=== PATIENT | male | born 1990 | race African-American/Black ===

== ENCOUNTER 2019-07-05 06:40 | Emergency (ER) | payer OTHER ==
[~2019-07-05] VITALS: Ht 182.9 cm; Wt 97.7 kg
[2019-07-05] MEDS ORDERED: ONDANSETRON 4MG/2ML VIAL (J2405) IV ONE (07:00)
[2019-07-05] MEDS ORDERED: KETOROLAC 30 MG/ML VIAL (J1885) IV ONE (07:00)
[2019-07-05 07:39] LABS: BASO # 0.1 10^3/uL (0.0-0.2); EOS % 0.6 % (0.0-3.0); HEMATOCRIT 45.4 % (42.0-52.0); HEMOGLOBIN 14.9 g/dl (13.5-17.5); LYMPH # 1.9 10^3/uL (1.5-5.0); LYMPH % 39.1 % (24.0-44.0); MEAN CORPUSCULAR HEMOGLOBIN 30.5 pg (27.0-33.0); MEAN CORPUSCULAR HGB CONC 32.8 g/dl (32.0-36.5); MEAN CORPUSCULAR VOLUME 92.8 fl (80.0-96.0); MONO # 0.4 10^3/uL (0.0-0.8); MONO % 8.4 % (0.0-5.0); NEUTROPHILS # 2.5 10^3/uL (1.5-8.5); NEUTROPHILS % 50.7 % (36.0-66.0); PLATELET COUNT, AUTOMATED 249 10^3/uL (150-450); RED BLOOD COUNT 4.89 10^6/uL (4.30-6.10); WHITE BLOOD COUNT 4.9 10^3/uL (4.0-10.0)
[2019-07-05 07:53] LABS: BLOOD UREA NITROGEN 10 MG/DL (7-18); CALCIUM LEVEL 8.9 MG/DL (8.5-10.1); CARBON DIOXIDE LEVEL 28 MEQ/L (21-32); CHLORIDE LEVEL 107 MEQ/L (98-107); CREATININE FOR GFR 1.19 MG/DL (0.70-1.30); GLOMERULAR FILTRATION RATE > 60.0 (>60); GLUCOSE, FASTING 87 MG/DL (70-100); POTASSIUM SERUM 4.4 MEQ/L (3.5-5.1); SODIUM LEVEL 141 MEQ/L (136-145)
[2019-07-05 07:57] LABS: ALBUMIN 3.5 GM/DL (3.2-5.2); BILIRUBIN,DIRECT 0.1 MG/DL (0.0-0.2); BILIRUBIN,TOTAL 0.5 MG/DL (0.2-1.0); TOTAL PROTEIN 7.2 GM/DL (6.4-8.2)
[2019-07-05] MEDS ORDERED: ONDA4TAB6 PO (08:19)
[2019-07-05 08:48] VITALS: BP 147/88
--- NOTE | 2019-07-05 15:03 | ECGEPIP ---
[facility] - ED Test Date: 2019-07-05 Pat Name: PORTIA DAVIDSON Department: Room: - Gender: Male [employer] Inspector: LICO : 1990 Requested By: ROSA FRANCISCO Order Number: [id number] Reading MD: Dao Celaya Measurements Intervals [place] Rate: 61 P: 28 WY: 158 QRS: 71 QRSD: 95 T: 57 QT: 382 QTc: 386 Interpretive Statements SINUS RHYTHM INCOMPLETE RIGHT BUNDLE BRANCH BLOCK BENIGN EARLY REPOLARIZATION NO PRIORS FOR COMPARISON Electronically Signed on 07-05-2019 15:03:40 EST by Dao Celaya
== END 2019-07-05 09:00 | disposition home or self-care (01) ==
LOC: M ED 06:40
DX: K52.9 Noninfective gastroenteritis and colitis, unspecified (principal); I45.19 Other right bundle-branch block
CPT/HCPCS: 80048; 80076; 83605; 83690; 85025; 93005; 96374; 96375; 99284; J1885; J2405